=== PATIENT | male | born 2000 | race Caucasian/White ===

== ENCOUNTER 2022-10-08 13:00 | Emergency (ER) | payer BC ==
[2022-10-08] MEDS ORDERED: Sodium Chloride 0.9% 10 ML Syringe FLUSH PRN (14:23)
[2022-10-08] MEDS ORDERED: HYDROmorphone 0.5 MG/0.5 ML Syringe IVPUSH ONE (14:24)
[2022-10-08] MEDS ORDERED: Sodium Chloride 0.9% 1,000 ML IV SCH (14:45)
[2022-10-08 14:56] LABS: CALCIUM 9.3 mg/dL (8.5-10.1); CREATININE 1.2 mg/dL (0.8-1.3); EST CRCL DRUG DOSING (CG) 115.41 mL/min; POTASSIUM,K 4.5 mmol/L (3.6-5.2)
[2022-10-08 14:57] LABS: ANION GAP 8.5 mmol/L (5.0-14.0)
== END 2022-10-08 15:25 | disposition home or self-care (01) ==
LOC: JP.ED 13:00
DX: S43.015A Anterior dislocation of left humerus, initial encounter (principal); S43.035A Inferior dislocation of left humerus, initial encounter; X50.0XXA Overexertion from strenuous movement or load, initial encounter
CPT/HCPCS: 36415; 73020; 73030; 80048; 96374; 99283; J1170; J3490